=== PATIENT | female | born 1960 | race Hispanic/Latino ===

== ENCOUNTER 2024-06-24 09:37 | Outpatient (CLI) | payer OTHER | END 2024-06-24 09:38 | disposition home or self-care (01) | LOC: CSHULT 09:37 | PROVIDERS: ATTEND Student in an Organized Health Care Education/Training Program | DX: E04.1 Nontoxic single thyroid nodule (principal); E04.2 Nontoxic multinodular goiter | CPT/HCPCS: 76536 ==

== ENCOUNTER 2025-05-12 09:57 | Outpatient (CLI) | payer OTHER ==
[2025-05-12 10:57] LABS: Estimated GFR - POC 82.0
== END 2025-05-12 09:58 | disposition home or self-care (01) ==
LOC: CSHCT 09:57
PROVIDERS: ATTEND Family Medicine
DX: E03.9 Hypothyroidism, unspecified (principal); R10.31 Right lower quadrant pain; E04.2 Nontoxic multinodular goiter; N28.1 Cyst of kidney, acquired
CPT/HCPCS: 74178; 76536; 82565